=== PATIENT | female | born 1990 | race Caucasian/White ===

== ENCOUNTER 2021-04-29 09:00 | Outpatient (RCR) | payer SELFPAY ==
--- NOTE | 2021-04-29 09:05 | BH.SGPN.GN ---
Behaviors/Verbalizations/Mental Status: [] Eye contact is poor. Motor activity is restless. Appearance is casual. Speech is Appropriate. Mood is anxious. Affect is congruent. Thoughts are linear and logical. No evidence of psychosis. Client Response/Progress/Benefit: [] Pt choose not to participate in group. This was her first group and she was visibly anxious AEB restlessness and feet tapping. She did smile and nodd when other members were talking. Group provided some advice for her first day and week in the program and were very encouraging and welcoming. No progress noted as this was pt's first day in IOP. Will continue in IOP to stabilze mood and improve functioning. Narrative Note: []
--- NOTE | 2021-04-29 10:05 | BH.SGPN.GN ---
Behaviors/Verbalizations/Mental Status: []Client alert and oriented, neatly dressed and groomed. Eye contact avodiant. Motor activity appropriate. Speech within normal limits. Affect flat, mood anxious. Thoughts linear, logical. Client reports history of delusions and hallucinations, but these did not present during session. Client Response/Progress/Benefit: []Client engaged in session AEB taking notes and listening attentively to peers. Client was quiet throughout group but was taking notes and was attentive. Client listened as group identified benefits of setting boundaries such as reduced stress and improved relationships. Listened during psychoeducation on different types of boundaries. Client seemed to benefit from increased awareness of how boundaries impact mental health and the different types of boundaries there are. First day of IOP tx. Will continue IOP tx to prevent decompensation, get medication management, and gain support. Narrative Note: []
--- NOTE | 2021-04-29 11:10 | BH.SGPN.GN ---
Behaviors/Verbalizations/Mental Status: []Client alert and oriented, casually dressed and appropriately groomed. Eye contact fair. Motor activity appropriate. Speech within normal limits. Affect constricted, mood anxious. Thoughts linear and intact. no signs of delusions or hallucinations. Client Response/Progress/Benefit: []Client passive participant AEB client providing limited input throughout discussion, however did appear to listen attentively to discussions. Client engaged in the boundary self-assessment activity. Client chose to not share what she most struggles with in boundary setting. Client was attentive during psychoeducation on the different boundary styles. Client stated she tends to be a people pleaser which results in her having difficulty saying no. Participated in group discussion brainstorming various strategies for improving healthy personal boundaries. Seemed to benefit from increased awareness of personal boundary style and impact this has on mental health. Will continue IOP tx to decrease anxiety, improve ability to relax and prevent decompensation. Narrative Note: []
--- NOTE | 2021-04-30 09:05 | BH.SGPN.GN ---
Behaviors/Verbalizations/Mental Status: [] Eye contact is poor. Motor activity is restless. Appearance is casual. Speech is Appropriate. Mood is euthymic. Affect is full. Thoughts are linear and logical. No evidence of psychosis. Reviewed daily check in sheet and no reports of suicidal ideations or intent. Client Response/Progress/Benefit: [] Pt did not participate in group discussion and choose not to share. She was attentive AEB by head nodding. She does appear to benefit from group support and discussions. While she does not participate she again does appear engaged in the topic. Will continue in IOP to stablize mood and improve functioning. Narrative Note: []
--- NOTE | 2021-04-30 10:10 | BH.SGPN.GN ---
Behaviors/Verbalizations/Mental Status: []Client alert and oriented, casual dress, hygiene tended to. Eye contact fiar. Motor activity appropriate. Speech within normal limits. Affect constricted, mood dysthymic. Thoughts linear, logical, no signs of hallucinations or delusions. Client Response/Progress/Benefit: []Pt mostly passive participant AEB pt providing input during discussion and listened attentively to peers. Pt worked with group to identify benefits of effective problem solving. Listened during psychoeducation about ABCDE problem solving method. Worked with group to identify barriers to effective problem solving which included: anxious thoughts, impatience, denial, not having skills, feeling overwhelmed, and worries about what other people think. Pt seemed to benefit from increased awareness of strategies to help solve a problem. Pt to continue IOP to stabilize moods, increase healthy coping and prevent decompensation. Narrative Note: []
--- NOTE | 2021-04-30 11:10 | BH.SGPN.GN ---
Behaviors/Verbalizations/Mental Status: [] Eye contact is fair to good. Motor activity is appropriate. Appearance is casual. Speech is Appropriate. Mood is anxious and depressed. Affect is constricted. Thoughts are linear and logical. No evidence of psychosis. Client Response/Progress/Benefit: [] Pt receptive of session as evidenced by remaining attentive, taking notes throughout discussion, and working the problem-solving worksheet. Pt stated the problem she wants to work on is isolation. She struggled in identifying skills she can utilize to work on this problem and appeared reluctant to feedback provided by group. Still new to IOP tx and is adjusting to the group environment. Pt seemed to benefit from identifying strategies to problem solve through a problem currently impacting mental health. Recommended continued tx to improve use of healthy coping skills, improve mood stability, and prevent decompensation. Narrative Note: []
--- NOTE | 2021-05-04 09:05 | BH.SGPN.GN ---
Behaviors/Verbalizations/Mental Status: [] Pt eye contact intense at times and avoidant other times, casually dressed, motor activity appropriate, speech normal rate and tone, mood anxious. constricted affect. Thought blocking, struggled at times with completing a sentence. Reviewed client?s symptom tracker, no signs of suicidal ideation, plan, or intent as of today. Client Response/Progress/Benefit: []Pt engaged participant AEB listening attentively to others and sharing thoughts and feelings. Pt reported her best friend's mom is dying so pt stayed with her friend over the weekend to help care for her friends children. Pt initially stated they had fun together but stopped herself and said It couldn't be fun because I was there for a sad thing. Pt reported a mental health positive was helping clean for one hour with her friends kids. Pt stated she has stressors but did not want to share. Pt identified emotion today as anxious stating I'm always anxious. Pt seemed to benefit from expressing thoughts and feelings. Pt to continue IOP to stabilize moods, increase daily functioning and prevent decompensation. Narrative Note: []
--- NOTE | 2021-05-04 10:15 | BH.SGPN.GN ---
Behaviors/Verbalizations/Mental Status: [] Eye contact is poor. Motor activity is appropriate. Appearance is casual. Speech is Appropriate. Mood is anxious. Affect is congruent. Thoughts are linear and logical. No evidence of psychosis. Client Response/Progress/Benefit: [] Pt participated at times during the group discussion and activity. Attentive during psychoeducation. Limited engagement however did at times provide feedback during activity where group had to identify 10 positives and 10 negatives of a picture. Attentive with some engagement while group identified what lead to one's perspective; upbringing, trauma, environment, friends, past events, fear, medical issues, physical pain, and mental health disorders. Some engagement and participation with peers as they identified how one's perspective can negatively impact mental health treatment leading to; risky behaviors, suicidal thoughts, self-harming, isolation, avoiding treatment, shutting down, and can also cause one to stop taking medications. Provided some input into how a positive or realistic perspective can help decrease depression, improve relationship, increase hope, and increase motivation. Increased awareness and discussion on the role that perspective has on mental health was beneficial. Will continue in IOP to prevent decompensation, stabilize mood, and improve functioning. Narrative Note: []
--- NOTE | 2021-05-04 11:15 | BH.SGPN.GN ---
Behaviors/Verbalizations/Mental Status: []Client alert and oriented, neatly dressed and groomed. Eye contact good at times, other times avoidant. Motor activity appropriate. Speech within normal limits. Affect flat, mood anxious. Thoughts linear, logical, no signs of hallucinations or delusions. Client Response/Progress/Benefit: []Pt engaged participant AEB pt providing input throughout session, listening attentively to peers and completing strengths exploration handout. Pt identified personal strengths such forgiveness, love of learning, and enthusiasm. Pt stated these strengths will help pt?s mental health recovery, but right now pt has a hard time identifying strengths. Pt reports she was told she did not have strengths for a long time which made her start to believe the negatives. Group offered support and suggestions to combat this. Pt seemed to benefit from increased awareness of personal strengths and improved understanding how perspective can impact view of self. Pt also attentive while group identified coping skills to increase recognition of strengths. Pt is to continue IOP tx to prevent further decompensation, learn healthy coping skills, and increase daily functioning. Narrative Note: []
--- NOTE | 2021-05-04 14:39 | BH.MDN ---
Multi-Disciplinary Note - Note 60-min Individual Time Started:: 12:15 Date: 05/04/21 Purpose of session/treatment goals addressed:: The purpose of this session was to gather information on client's current stressors, symptoms, and treatment goals. Another goal was to build rapport. Eye Contact:: Other - eyes darting back and forth at times. other times intense or avoidant. Motor Activity:: Appropriate Appearance:: Neat Speech:: Tangential Mood:: Anxious Affect:: Constricted Thoughts:: Circular, No evidence of hallucinations/delusions noted - possible evidence of paranoia and self-report of hearing things. Denies any command hallucinations. Staff Interventions:: Therapist used active listening and open-ended questions to explore client's current stressors, symptoms, history, and treatment goals. Therapist used strengths perspective to build rapport and help client feel comfortable in the treatment setting. Client Response:: Client responded well to session, open to meeting with therapist. Client did appear anxious discussing symptoms with therapist, but overall appeared to feel comfortable. Client shared her goals for IOP are to have healthier boundaries and communication, to have more balance in her life, and to be able to identify her negative thought patterns. 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 Client reports one of her previous nursing jobs was very toxic as client reports one of the nurses was hiding medications from client and treating her poorly. Client stated she would silence my alarms and hide the medications I needed to treat COVID patients. Client reported she was told I was just making this up and that she has been suspicious of working in hospitals since. Client admits to some paranoia and hearing some noises others do not hear, but denies any command hallucinations. Client stated she obsesses over things and is a perfectionist. Client receptive to learning about some of the common cognitive distortions and discussed what to expect when client meets with the psychiatrist. Risks/Concerns:: Client denies any suicidal ideations or homicidal ideations. Client does not present as a danger to herself or others at this time. Will continue to monitor client's mood and paranoia. Progress Toward Goals/Plan:: Client started IOP last week and appears to be responding well to treatment. Client has been taking notes and connects with the group topics. Client endorses a depressed mood, paranoid thoughts, isolative behaviors. Client has been withdrawing from her friends due to her anxiety and paranoia. Client reports connecting things that are not connected have worsened over time. Client currently believes her car, house and phone are all bugged and that she is being watched. Client is not currently on any antipsychotic medications and does not have any providers. Client will continue IOP tx to prevent decompensation, improve daily functioning, and for medication management. Time Stopped:: 13:08
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
--- NOTE | 2021-05-04 14:41 | BH.MTP_ITS ---
Master Treatment Plan - Patient Information Program Physician:: Dr. Jenn Vu Primary Therapist:: Lo YARBROUGH - Psychiatric Diagnoses Psychiatric Diagnoses:: Psychosis, not otherwise specified; Rule out bipolar disorder, most recent episode depressed, severe with psychosis F 31.9 Diagnosis Code(s):: F 31.9 - Estimated LOS Estimated LOS (in weeks):: 6 Problem/Goal #1 - Problem/Goal #1 Stated Goal:: Client will reduce overall frequency, intensity, and duration of paranoia and anxiety to improve daily functioning. Description of Barriers: Client is currently not working and does not have insurance. Client pays child support to her ex- and there is a lot of financial stress at this time. Client has experienced numerous life stressors such as divorce and the COVID pandemic. 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 Client reports lack of trust and isolative behaviors. No current mental health providers. Functional Impact: Client is a 30 year-old female with a history of anxiety, depression, and paranoia. Client was referred to [facility] by a close friend due to client's worsening anxiety and connecting things that aren't connected. Client reports belief that her house, car, and phone are all bugged. Client also re ports hearing sounds others do not hear, but denies hearing any voices. 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 Client reports lack of trust for people, even those closest to her. Client currently withdrawing from family and friends, but still enjoys spending time with her children. Client reports some symptoms of ham, but there is not enough evidence at this time. Endorses a depressed mood with erratic sleep and decreased appetite. Client is not functioning at her baseline and reports it has been hard for her to leave her house due to anxiety. Client reports her symptoms have been worse over the past six months and client has experienced numerous stressors including the COIV[place] pandemic and divorce. Goal Relevant Strengths/Supports: Client wants to improve her mental health for herself and her children. Client has her best friend for primary support. - Objectives Objective #1 Stated Objective: Client will identify 2-3 anxiety and paranoia triggers and 2 healthy coping skills to use when feeling anxious to reduce anxiety and paranoia as shown by decreased DSM-5 cross-cutting score. Interventions: Therapist will help client increase awareness of cognitive distortions, paranoia triggers, and physical warning signs of anxiety. Therapist will encourage client to focus on stressors in her control and teach client calming and mindfulness techniques. Therapist will encourage client to utilize reality checking with her supports when she is feeling paranoid. Discharge Criteria: Client will have accomplished this goal when can report at least 2 triggers for anxiety/paranoia and state using 2 calming strategies to manage symptoms. Additionally, client will have accomplished this goal when her DSM-5 cross-cutting scores show a decrease in anxiety. Target Date: 06/10/21 Review Date: 05/27/21 Status: open Objective #2 Stated Objective: Develop healthier thinking patterns and beliefs about self, others, and the world Interventions: Through individual and group counseling, therapist will provide education and guidance on healthy coping, impact of ruminations, and identifying and challenging unrealistic thoughts. Therapist will also encourage client to reach out to healthy supports to increase trust. Discharge Criteria: Client will be able to identify 3 strategies to manage emotional distress related to triggers to paranoid thoughts. Client will report decreased amount of time spent worrying about what she perceives others are thinking about her. Target Date: 06/10/21 Review Date: 05/27/21 Status: open Problem/Goal #2 - Problem/Goal #2 Stated Goal:: Client will decrease depressive symptoms, isolation, and guilt. Description of Barriers: Client is currently not working and does not have insurance. Client pays child support to her ex- and there is a lot of financial stress at this time. Client has experienced numerous life stressors such as divorce and the COVID pandemic. 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 Client reports lack of trust and isolative behaviors. No current mental health providers. Functional Impact: Client is a 30 year-old female with a history of anxiety, depression, and paranoia. Client was referred to IOP by a close friend due to client's worsening anxiety and connecting things that aren't connected. Client reports belief that her house, car, and phone are all bugged. Client also reports hearing sounds others do not hear, but denies hearing any voices. 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 Client reports lack of trust for people, even those closest to her. Client currently withdrawing from family and friends, but still enjoys spending time with her children. Client reports some symptoms of ahm, but there is not enough evidence at this time. Endorses a depressed mood with erratic sleep and decreased appetite. Client is functioning at her baseline and reports it has been hard for her to leave her house due to anxiety. Client reports her symptoms have been worse over the past six months and client has experienced numerous stressors including the COIV[place] pandemic and divorce. Goal Relevant Strengths/Supports: Client wants to improve her mental health for herself and her children. Client has her best friend for primary support. - Objectives Objective #1 Stated Objective: Client will learn and utilize 2-3 healthy coping strategies to better manage depressive symptoms as shown by reduced DSM-5 scores. Interventions: Through group and individual sessions, therapist will help client identify triggers and warning signs of depression and emotional dysregulation including emotional, physical, and behavioral changes. Therapist will teach client various coping skills to manage her symptoms and give client tangible resources to use to regulate emotions. Therapist will use cognitive rest ructuring techniques and help client gain awareness of negative thoughts that reinforce depressive cycles. Therapist will help client incorporate behavioral activation and assist client in setting SMART goals. Discharge Criteria: Client will have met this goal when she can report learning and using at least 2 coping skills to manage depressive and bipolar symptoms and show a reduction in DSM-5 symptoms. Target Date: 06/10/21 Review Date: 05/27/21 Status: open
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
[2021-05-05 12:23] VITALS: BP 123/76; PULSE 53
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
--- NOTE | 2021-05-05 13:16 | BH.DR.ITP ---
Initial Treatment Plan Patient Information Visit Information: ADMISSION DATE: EXPECTED LOS: 4-6 weeks Problems/Symptoms Problem #1:: Depression and erratic moods Symptom:: Sadness, guilt, biological disruption of sleep, decreased concentration, guilt, passive thoughts of , delusions of paranoia Problem #2:: Anxiety Symptom:: Rumination, worry, fear
--- NOTE | 2021-05-06 09:05 | BH.SGPN.GN ---
Behaviors/Verbalizations/Mental Status: [] Eye contact is poor.. Motor activity is restless. Appearance is casual. Speech is Appropriate. Mood is anxious. Affect is congruent. Thoughts are linear and logical. No evidence of psychosis noted in group. Reviewed daily check in sheet and no reports of suicidal ideations or intent Client Response/Progress/Benefit: [] Pt participated when prompted. Attentive. She did provide feedback to peer on one occasion. Emotion for today is not sure. States that she was able to read a book yesterday. Briefly shared how this was a positive. Also shared that the book itself was very uplifting. She states that she has thought about starting a journal however due to her paranoia she is fearful that someone will find it and read it. This was the first that she discussed paranoid and distrustful thoughts in group setting and could indicate feeling more comfortable in IOP. Progress noted. Benefited from group support, encouragement, and feedback. Will continue in IOP to stabilize mood, provide support, and improve functioing. Narrative Note: []
--- NOTE | 2021-05-06 10:10 | BH.SGPN.GN ---
Behaviors/Verbalizations/Mental Status: [] Client alert and oriented, casually dressed and groomed. Eye contact good. Motor activity appropriate. Speech within normal limits. Affect congruent, mood anxious. Thoughts linear, logical, no signs of hallucinations or delusions. Client Response/Progress/Benefit: [] Pt was an active participant in group discussion, proving input and taking notes, as well as completed group worksheet. Provided appropriate feedback and shared how learning how to manage anger can positively improve relationships with oneself and others. Group worked together to define anger and discussed the ways anger can impact one internally and externally. Pt reported that anger can be triggered by external situations, other people, and disappointment in oneself. Pt completed the iceberg exercise and identified emotions that tend to ?live under the surface? of anger. Pt also gained awareness of her typical responses to anger which included: shutting down, passive-aggressive or being sarcastic, and lashing out. Pt acknowledges that anxiety, feeling out of control/unknowns, and unexpected change has brought about personal anger in the past. Benefited from group by increasing understanding of the impact of anger on mental health. Recommended continued tx to improve emotion regulation skills, prevent decompensation, and continue to work on improving anxiety management. Narrative Note: []
--- NOTE | 2021-05-06 11:10 | BH.SGPN.GN ---
Behaviors/Verbalizations/Mental Status: []Client alert and oriented, neatly dressed and groomed. Eye contact fair. Motor activity appropriate. Speech within normal limits. Affect constricted, mood anxious. Thoughts linear, logical, no signs of hallucinations or delusions. Client Response/Progress/Benefit: []Pt was engaged throughout AEB participating in discussion and taking notes. Contributed as group brainstormed healthy coping skills for better managing anger which included: deep breathing, counting, exercise, self-reflection questions, and opposite action. Pt also gained awareness of physical warning signs pt has when feeling anger such as restlessness, teary eyes, and clenched fists. Pt appeared to benefit from identifying different techniques to manage anger as well as gaining awareness of warning signs. Pt selected ?counting to 10 like a whale? to better manage anger. Will continue IOP tx to monitor paranoia and medications, increase knowledge of healthy coping skills, and gain support. Narrative Note: []
--- NOTE | 2021-05-10 09:01 | BH.SGPN.GN ---
Behaviors/Verbalizations/Mental Status: []Client alert and oriented, casual dress, hygiene tended to. Eye contact fair. Motor activity appropriate. Speech within normal limits. Affect constricted, mood anxious. Thoughts linear, logical, no signs of hallucinations or delusions. Client Response/Progress/Benefit: Pt responded well to session AEB pt openly sharing thoughts and listening attentively to others. Pt identified mental health positive as being able to read a book over the weekend. Pt reported additional mental health positives as starting to write journals for her kids. Pt stated she has been asking questions to her kids to learn more about them. Pt stated she didn't want to talk about any stressors. Pt seemed to benefit from listening to peers and sharing thoughts. Pt to continue IOP to stabilize moods, increase healthy coping and prevent decompensation. Narrative Note: []
--- NOTE | 2021-05-10 10:15 | BH.SGPN.GN ---
Behaviors/Verbalizations/Mental Status: []Eye contact is good. Motor activity is appropriate. Appearance is casual. Speech is Appropriate. Mood is irritable. Affect is flat. Thoughts are linear and logical. No evidence of psychosis. Client Response/Progress/Benefit: []Pt was an active participant in group discussion and activity. Attentive during psychoeducation on factors that build resiliency. Worked with peers to define resilience and was often nodding and taking notes. Along with peers also identified what could impact resilience which included: family, internal coping skills, beliefs, hope, and personality type. Pt reports thinking of her children makes pt resilient. Pt benefited by increasing awareness on the role of resilience in mental health and factors that can help build resiliency. Will continue IOP tx to prevent decompensation, monitor medication/psychosis, and improve daily functioning. Narrative Note: []
--- NOTE | 2021-05-10 11:20 | BH.SGPN.GN ---
Behaviors/Verbalizations/Mental Status: []Client alert and oriented, casually dressed and groomed. Eye contact good. Motor activity appropriate. Speech within normal limits. Affect congruent, mood anxious. Thoughts linear, logical, no signs of hallucinations or delusions. Client Response/Progress/Benefit: []Client responded well to session, engaged and providing input throughout. Client participated in the discussion of how each resiliency component can help increase personal resiliency. Reports relating to the personal examples shared by fellow participants. Client worked with group to identify ways to practice each of the resiliency traits reviewed. Client shared she would like to focus on improving resilience trait of ?self-awareness?. Client would like to continue working on this resiliency trait by regularly checking-in with herself and asking ?How did this actually impact you??. Appeared to benefit from reflecting on importance of each resilience trait and identifying strategies to strengthen resilience. Will continue IOP tx to continue to improve mood stability, further reduce anxiety, and improve daily functioning. Narrative Note: []
--- NOTE | 2021-05-11 09:08 | BH.SGPN.GN ---
Behaviors/Verbalizations/Mental Status: []Eye contact is good. Motor activity is appropriate. Appearance is casual. Speech is Appropriate. Mood is dysthymic, anxious. Affect is congruent. Thoughts are linear and logical. No evidence of psychosis. Reviewed daily check in sheet and no reports of suicidal ideations or intent. Client Response/Progress/Benefit: []Pt was an attentive participant AEB actively listening and providing supportive feedback, as well as willingness to process with group. Client reports emotion for the day as ?less anxious but tired? as she is still adjusting to the IOP schedule. Shared she has been working to improve her overall self-awareness which has been somewhat of a stressor as pt continues to struggle with recognizing when she is struggling and identifying warning signs and triggers. Able to provide insight into importance of improved self-awareness to help prevent sx escalation long-term. Pt did well to recognize current positives which included spending time with a friend and her father, as well as beginning to work on thought challenging. Continues to struggle with thought blocking and paranoia that reinforce sx. Benefited from group support, encouragement, and feedback. Will continue in IOP to improve coping repertoire, prevent decompentation, and improve overall mood stability. Narrative Note: []
--- NOTE | 2021-05-11 10:15 | BH.SGPN.GN ---
Behaviors/Verbalizations/Mental Status: []Client alert and oriented, casually dressed and groomed. Eye contact poor. Motor activity appropriate. Speech within normal limits. Affect constricted, mood anxious. Thoughts linear, logical, no signs of hallucinations or delusions. Client Response/Progress/Benefit: []Client passive participant AEB pt providing limited input during session AEB client contributing thoughts throughout discussion and completing worksheet. Connected with discussion on crisis and how coping with external crises by using unhealthy coping skills could result in a personal crisis. Group reflected on the importance of having awareness of personal warning signs in order to prevent reaching crisis point. Group identified potential warning signs for crisis and client completed the personal warning signs worksheet. Client completed worksheet in which she identified personal crisis warning signs, however elected to not share out with group. Client benefited by increasing awareness of what leads to crisis and personal warning signs. Pt will continue IOP to stabilize moods, increase healthy coping and prevent decompensation. Narrative Note: []
--- NOTE | 2021-05-11 11:15 | BH.SGPN.GN ---
Behaviors/Verbalizations/Mental Status: []Client alert and oriented, casually dressed and groomed. Eye contact fair. Motor activity appropriate. Speech within normal limits. Affect constricted. Mood anxious. Thoughts linear, logical, no signs of hallucinations or delusions. Client Response/Progress/Benefit: []Client responded well to session as evidenced by client listening attentively to others and providing strategies during discussion. Client identified warning signs for crisis and gained further awareness of earliest warning signs. Client created a crisis action plan to help client better manage warning signs for crisis. Client?s action plan for uncontrollable worries, negative thinking, and racing thoughts included coping skills such as: calling her supports, reframing distortions, sharing thoughts with counselor, and using calming skills. Client appeared to benefit from creating a crisis action plan and increasing self-awareness. Client to continue IOP tx to prevent decompensation, monitor paranoia and medications, and improve daily functioning. Narrative Note: []
--- NOTE | 2021-05-12 09:00 | BH.SGPN.GN ---
Behaviors/Verbalizations/Mental Status: []Eye contact is avoidant. Motor activity is restless. Appearance is neat. Speech is Appropriate. Mood is depressed and anxious. Affect is flat. Thoughts are linear and logical. No evidence of psychosis in session, but history of paranoid thoughts. Reviewed daily check in sheet and pt denies any suicidal ideations or thoughts of today. Client Response/Progress/Benefit: []Client responded well to session, attentive, but appearing anxious. Client reports feeling unsure and scared this morning due to feeling overwhelmed by current stressors. While sharing, client was drawing on her pants with a pen. Client did not want to share many details, but did share that her children are her biggest positive. Client is still getting comfortable in the IOP setting and has been consistent with attendance which is progress. Will continue IOP tx to reduce paranoia, improve daily functioning, and monitor medication changes. Narrative Note: []
--- NOTE | 2021-05-12 12:06 | PCM.BH.PN_ITS ---
Progress Note Progress Note: History of Present Illness/Interim History: [] The patient is a 30-year-old female who is seen in follow-up at the [facility] behavioral health IOP program. I last saw the patient 1 week ago and at that time she was started on Abilify 5 mg p.o. daily and was instructed to stop her Prozac. Discussion was had with the patient that she may well have a bipolar disorder which may be in part responsible for her psychosis. Patient understands and it was discussed again that she needs to see a neurologist for her recent onset of migraine headaches and to have a CT scan to rule out CLERICAL MANAGER pathology as causing the headaches and possibly the psychosis. Per discussion with staff the patient is doing well in the groups. She is still having some trouble with her sleep where she wakes up every hour or 2 but does get back to sleep for most of the time. She felt jittery the first 2 days on the Abilify but this resolved. Her symptoms are otherwise not much changed and she continues to believe that her house and phone are bugged and that she is being watched. She is able to read a few pages in books at a time but is still has trouble focusing. In discussion with her counselor also the patient's delusions are unchanged. She denies any auditory hallucinations or other types of delusions besides paranoia. She is enjoying being with her children and taking care of them. She denies passive thoughts of , suicidal ideation, homicidal ideation. Current Psychiatric Medications: [] Abilify 5 mg p.o. daily (x1 week) Laboratory: Complete metabolic panel and TSH and urinalysis were all within normal limits on her urine tox screen was negative. Mental Status Examination: [] The patient appears normal for stated age and is seen wearing a mask due to the pandemic. She has no psychomotor agitation or retardation. She is cooperative during the interview and her response latency is shorter than it was at initial visit. Eye contact is improved and the patient does look at the doctor at times but occasionally looks away at other times. Mood is depressed and affect is constricted. Thought process is goal- directed and organized. Thought content: There is evidence of delusions of paranoia still which are unchanged. There is no evidence of hallucinations or other types of delusions. Reality testing is otherwise intact. There is no evidence of passive thoughts of , suicidal ideation, homicidal ideation, plan for suicide or thoughts of self-harm. Judgment is limited but intact for the most part. Insight is fair. Impulsivity is moderate. Diagnoses: [] 1. Rule out bipolar disorder, most recent episode depressed, severe with psychosis versus psychosis, NOS 2. Primary support, financial and work issues 3. Headaches with onset in the past year 4. Primary support, financial and work issues Plan: [] The patient will continue the IOP program at [facility] as she is functioning well in the program and as the structure, support, education and group therapy will hopefully prevent worsening of the patient's symptoms which might require hospitalization. She felt safe during the interview and if it anytime she does not feel safe she will let us know or go to the emergency room. The risks, options, possible complications were again discussed with the patient of the medications and she understands and accepts these. Patient agrees to increase her Abilify to 7.5 mg by taking 1-1/2 of a 5 mg tablet. She agrees to attempt to get a new primary care doctor and possibly a neurologist who she will see for headaches and where she will get us a CT scan ordered also. I will see the patient in 1 week in follow-up.
--- NOTE | 2021-05-12 14:53 | BH.MDN_ITS ---
Multi-Disciplinary Note - Note 45-min Individual Time Started:: 10:25 Date: 05/12/21 Purpose of session/treatment goals addressed:: To address current symptoms, worries, and stressors. Another goal was to start using reality testing techniques and help client increase insight to thought patterns and symptoms. Eye Contact:: Other - sometimes good, sometimes avoidant Motor Activity:: Appropriate Appearance:: Casual Speech:: Tangential Mood:: Anxious Affect:: Constricted Thoughts:: Flight of ideas, No evidence of hallucinations/delusions noted - some evidence of paranoid delusions Staff Interventions:: Therapist used active listening and provided emotional support. Therapist helped client gain insight to distorted thought patterns and used gentle thought challenging. Therapist helped client process current stressors and identify realistic actions client can take at this time. Client Response:: Client entered session alert, appeared anxious and was presenting with loose associations. Client stated she was at the gym and thought a girl took a picture of client in the locker room. Client unable to see other possible reasons for this, but therapist offered alternatives. Client did end up saying I guess I could see that to one of the alternatives. Client continues to feel overwhelmed by multiple life stressors including issues with her ex- and child support as well as mental health and finances. Client spent most of the session ruminating about the past with work and her divorce. Client lacks insight to her paranoid thought patterns and shared that she still believes her phone and home are bugged. Discussed reality testing and how this could help client's mental health. Client does well during individual sessions when therapist gently challenges client's perspective. Client reports she has a hard time trusting people and really only trusts her best friend. Client had many stressors today, but was unable to develop any concrete action steps to help manage these. Client continues to be receptive to medication and recently was increased on Abilify. Risks/Concerns:: Client denies any suicidal ideations, plan, or intent as of 05/12/21. Client has not yet received a CT scan for her migraines and was encouraged again by [facility] psychiatrist to schedule this. Progress Toward Goals/Plan:: Client is making progress with increasing comfort in the group setting and feeling more comfortable to share with individual therapist. Client presents as less guarded during sessions, but she is still having thought-blocking. Client continues to endorse symptoms of paranoia, racing thoughts, difficulty concentrating, and anxiety. Client will continue IOP tx to prevent decompensation, monitor medication changes, and improve overall functioning. Time Stopped:: 11:15
--- NOTE | 2021-05-20 08:53 | BH.MDN ---
Multi-Disciplinary Note - Note 60-min Individual Time Started:: 09:05 Date: 05/20/21 Purpose of session/treatment goals addressed:: To help increase insight to triggers, distorted thought patterns, and progress. To discuss outpatient counseling options. Eye Contact:: Other - sometimes good, sometimes scanning Motor Activity:: Restless Appearance:: Casual Speech:: Tangential Mood:: Anxious, Irritable, Dysthymic Affect:: Congruent Thoughts:: Racing, Other - Tangential and thought blocking at times. Staff Interventions:: Therapist assessed progress and client's response to medication change. Therapist provided emotional support and active listening. Therapist gently challened distorted thought patterns and encouraged client reconnect with her former outpatient therapist. Client Response:: Client responded well to session, open to meeting with therapist. Client reports belief she is seeing benefits from her medication increase. However, client continues to report that her house, car, and phone are bugged. Client also continues to ruminate on her divorce and is worried about court. Client did better this session with being redirected and was receptive to discussion on outpatient therapy. Client used to go to [facility], but stopped going because she felt like her therapist was telling people confidential information about client. Client has gained insight that it wasn't just him I didn't trust, I didn't trust anyone. Client still has low insight to her paranoid thoughts, but is tolerating the Abilify well which will hopefully help with this symptom. Client reports she has been exercising more consistently and she is thinking about getting a job although she is not sure she knows what she wants to do. Client receptive to practicing positive self-talk and setting goals for each day for now, rather than focusing on long-term goals. Client will continue IOP tx and plans to follow up with [facility] for outpatient counseling and psychiatry. Risks/Concerns:: Client denies any suicidal or homicidal ideations plan or intent as of 05/20/21. Progress Toward Goals/Plan:: Client self-reports progress in less seeing/hearing things at home, less mood fluctuating, and less racing thoughts since increasing her medication. There is still evidence of paranoid thoughts as client shared in session today that her phone is still bugged and there are cameras at her house. Client has been exercising which is positive. Sleep is slowly improving. Will continue IOP tx to reduce paranoia, improve functioning, and learn healthy coping skills. Time Stopped:: 10:00
--- NOTE | 2021-05-20 10:10 | BH.SGPN.GN ---
Behaviors/Verbalizations/Mental Status: [] Eye contact is good. Motor activity is appropriate. Appearance is casual. Speech is Appropriate. Mood is anxious. Affect is congruent. Thoughts are linear and logical. No evidence of psychosis Client Response/Progress/Benefit: [] Pt participated at times during the group discussion. Active participant in group activity. Attentive during psychoeducation on the 5 stages of change. Pt provided insight while group worked to identify barriers to change which included; being complacent, fear of the unknown, being uncomfortable, fearful that any change will be overwhelming, accustomed to current life, and knowing what to expect (even if its negative) is comfortable. During activity group processed emotions commonly associated with change along with her peers. Emotions processed were exhausted, cautious, hopeful, frustrated, overwhelmed, confident, frightened, relief, and excitement. Benefited from increase awareness of the emotions associated with change and how these emotions can encourage or disrupt change. Will continue in IOP to stablize mood, improve functioning, and for medication management. Narrative Note: []
--- NOTE | 2021-05-25 09:00 | BH.SGPN.GN ---
Behaviors/Verbalizations/Mental Status: [] Eye contact is good. Motor activity is appropriate. Appearance is casual. Speech is Appropriate. Mood is euthymic. Affect is full. Thoughts are linear and logical. No evidence of psychosis. Reviewed daily check in sheet and no reports of suicidal ideations or intent. Client Response/Progress/Benefit: [] Pt participated at times during the group discussion. Attentive. Provided appropriate feedback. Daily symptom tracker notes 3/5 for anxiety, depression, and irritability. Emotion for today is somewhat hopeful Mental health wins reported to be applying for job and accomplishing tasks around the house. States life is stressful. Feels pressure to start work due to finances and her dream to build a house. Progress noted per pt report. Benefited from group suppor and encouragement. Will continue in IOP to prevent decompensation, medication management, and to improve functioning. Narrative Note: []
--- NOTE | 2021-05-25 10:08 | BH.SGPN.GN ---
Behaviors/Verbalizations/Mental Status: []Client alert and oriented, casually dressed and groomed. Eye contact good. Motor activity appropriate. Speech within normal limits. Affect constricted, mood anxious and hopeful. Thoughts linear, logical, no signs of hallucinations or delusions. Client Response/Progress/Benefit: []Client responded well to session, attentive and contributing to discussion. Group discussed potential barriers to communication including: yelling, shutting down, passive-aggressive behaviors, and mind-reading. Helped group identified positives of having effective communication skills. Attentive during psychoeducation on the four communication styles. Client reported she most often uses passive, passive-aggressive, and aggressive communication. Able to recognize negative outcomes of communication style such as ?no solutions.? Seemed to benefit from increased awareness of the different communication styles and identify personal communication style. Client to continue in IOP tx to monitor mood and medication, reduce distortions, and improve daily functioning. Narrative Note: []
--- NOTE | 2021-05-25 11:08 | BH.SGPN.GN ---
Behaviors/Verbalizations/Mental Status: []Client alert and oriented, casually dressed and appropriately groomed. Eye contact fair. Motor activity appropriate. Speech WNL. Affect constricted, mood anxious. Thoughts linear, logical, no signs of hallucinations or delusions. Client Response/Progress/Benefit: []Client responded well to session AEB client listening attentively to others and providing input during group discussion on the pay offs and costs of the different communication styles. Attentive during psychoeducation on interpersonal DBT skill ARAVIND and client selected a communication skill to practice. Client selected the skill of describing the situation more clearly so everyone is on the same page. Client seemed to benefit from increasing awareness of healthy strategies to improve communication. Will continue IOP tx to continue challenging distorted thoughts, stablize moods and prevent decompensation.
--- NOTE | 2021-05-26 09:00 | BH.SGPN.GN ---
Behaviors/Verbalizations/Mental Status: []Client alert and oriented, casually dressed and groomed. Eye contact fair. Motor activity appropriate. Speech within normal limits. Affect constricted, mood anxious and dysthymic. Thoughts linear, logical, no signs of hallucinations or delusions. Reviewed client?s symptom tracker, no risk for suicidal ideation, plan, or intent as of 05/26/21 Client Response/Progress/Benefit: []Client responded well to session, attentive and providing support to peers. Client reports feeling lost this morning sharing I have a lot going on and I don't know what to do next. Client shared she has applied for a few jobs which is progress, but client is unsure what will happen. Client's positives today included spending time with her children, reading more, and plans to go to the [place] soon. Appeared to benefit from group feedback and gentle thought challenging. Progress noted in client's improved mood and increased insight to distorted thought patterns. However, client continues to struggle with trusting others and there is still some evidence of paranoid thinking. Will continue IOP tx to promote mood stability, monitor medication, and learn healthy coping skills. Narrative Note: []
--- NOTE | 2021-05-26 12:34 | PCM.BH.PN ---
Progress Note Progress Note: History of Present Illness/Interim History: [] The patient is a 30-year-old female who is seen in follow-up at the [facility] behavioral health IOP program. I last saw the patient 2 weeks ago and at that time her Abilify was increased to 7.5 mg in the hopes of decreasing her paranoid delusions. She is feeling okay on this dose and denies any side effects. She is functioning a little better at home. She feels a little more tired than she was before and her sleep is still not great she says but it is much better than before she started the Abilify. She still states that she feels that her phone is bugged. She says that she is less paranoid and paranoid overall because now she is not sure that some of the things she wonders about are actually there and she feels there could be alternative explanations like maybe her kids unplugged her phone when she feels paranoid about it. Patient denies any other delusions or hallucinations other than described above. She is enjoying being with her children and is able to take care of them well. She denies thoughts of , suicidal ideation, homicidal ideation. Current Psychiatric Medications: [] Abilify 7.5 mg p.o. daily (x2 weeks) Mental Status Examination: [] The patient is a 30-year-old female who is seen wearing a mask due to the pandemic and a pillow appears normal for stated age. She has no psychomotor agitation or retardation. She is cooperative during the interview and her response latency is normal. It is not delayed. Eye contact is good and speech is normal rate and rhythm and fluent with no pressure. Mood is mildly depressed. Affect is constricted. Thought process is goal-directed and organized. Thought content: There is evidence of delusions of paranoia which are still present but some of them are less rigidly held. There is no evidence of other hallucinations or other types of delusions. Reality testing is otherwise intact. There is no evidence of thoughts of , suicidal ideation, homicidal ideation or thoughts of self-harm. Judgment is intact. Insight is fair. Impulsivity is moderate. Diagnoses: [] 1. Bipolar disorder, most recent episode depressed, severe with psychosis 2. Rule out psychosis NOS 3. Headaches with onset in the past year 4. Primary support, financial and work issues Plan: [] The patient will continue the IOP program as the structure, support, education, and group therapy will hopefully prevent worsening of the patient's symptoms which might require hospitalization. She felt safe during the interview and if it anytime she does not feel safe she will let us know or go to the emergency room. The risks, options, possible complications and side effects of the medications were again discussed with the patient and she understands and accepts these. She agrees that she is allowed to take Benadryl 25 mg, 1-2 at bedtime to help with her sleep. She agrees to increase her Abilify dose to 10 mg p.o. nightly. Prescription was sent in for this with #30 and 0 refills. She agrees to get a new primary care doctor and a referral to her neurologist for her new onset headaches and her possible first time psychosis. I will see the patient in 1 week to 2 weeks for follow-up.
--- NOTE | 2021-05-26 12:45 | BH.MDN_ITS ---
Multi-Disciplinary Note - Note 30-min Individual Time Started:: 11:20 Date: 05/26/21 Purpose of session/treatment goals addressed:: To address and process current stressors and complete DSM-5. Another goal was to review distortions and self- care. Eye Contact:: Fair Motor Activity:: Appropriate Appearance:: Casual Speech:: Appropriate Mood:: Anxious, Dysthymic Affect:: Congruent Thoughts:: Other - some thought blocking, but improved from previous sessions. Staff Interventions:: Therapist used active listening and provided emotional support. Therapist used thought challenging when needed and reviewed distortions. Therapist helped client problem-solve a current stressor and discussed the importance of self-care. Therapist gave client resources on the gut-brain connection as client had asked about this topic. Client Response:: Client responded well to session, open to meeting with therapist. Client reports the increase in medication has been positive and today client's medications were adjusted again. Client's interaction and communication during session has much improved compared to her first session. Client is making better eye contact and ruminating less about the past. Client discussed she is still stressed about finding work, but she has applied for some jobs. Client also plans to return to her old therapist and client has gained insight that it wasn't just him I didn't trust, I didn't trust anyone then. Client able to see how her thoughts were distorted and she is responding well to learning about the cognitive distortions. Client gained awareness of some of her distorted thought patterns that keep her stuck such as disqualifying the positives and all or nothing thinking. Therapist taught client about dialectical thinking and client reports liking this technique. Client also wants to work on having a better self-care balance and being more independent. Client shared she spends a lot of time with her friend and she would like to get back to doing some things on my own. Risks/Concerns:: Client denies any suicidal ideations, plan, or intent as of 05/26/21. Progress Toward Goals/Plan:: Client is progressing well in IOP tx AEB her reduced DSM-5 scores for depression and paranoia. Client?s depression has decreased by 50% since admission and paranoia has decreased by 83%. Client still endorses some paranoid thinking patterns, but they are less rigidly held. Client is also ruminating on the past less during individual sessions. Client continues to endorse anxiety about employment and the future as well as some sleep issues. Client will continue IOP tx to further decrease symptoms and improve daily functioning. Time Stopped:: 11:50
--- NOTE | 2021-05-26 12:53 | BH.TPR ---
Treatment Plan Review Date of Admission:: 04/29/21 Date of Treatment Plan Review:: 05/26/21 Admitting Diagnoses:: Psychosis, not otherwise specified; Rule out bipolar disorder, most recent episode depressed, severe with psychosis F 31.9 Current Diagnoses:: Bipolar disorder, most recent episode depressed, severe with psychosis F 31.9; rule out psychosis NOS Patient's Response to Treatment:: Client is responding well to IOP tx AEB her overall symptom reduction. Client?s DSM-5 scores have decreased by 19% since admission. Client?s symptoms for depression decreased by 50% and symptoms of psychosis decreased by 83%. Client is an active participant in group sessions, takes notes, and connects with peers. Client has been reading and exercising more to help cope with her symptoms. Status of Current Problems and Symptoms: Client's symptoms are ongoing, but there is some improvement since admission. There is evidence of delusions of paranoia which are still present but some of them are less rigidly held. Client has been responding well to her Abilify and reports it has been helping reduce racing thoughts and has helped with sleep, but client is still having sleep issues. Problem #1 Problem Name:: Paranoia and anxiety Status of Goals:: Objective 1- in progress. Client has been responded well to Abilify and this appears to be helping to reduce client?s paranoid thoughts. Client?s DSM-5 scores for psychosis/delusions has decreased by 83% since admission. Client?s DSM-5 scores for anxiety remain the same since admission. Client is working on using healthy coping skills to manage her symptoms such as exercising, reading, and catching distortions. Objective 2- in progress. Client had not been ready to work on challenging her thought patterns prior to getting on a higher dose of Abilify. Now that client has more insight and less rigid beliefs she will work on challenging distortions. Client still has many distorted thoughts about mental health and the stigma associated with mental health. Team Recommendations:: The treatment team encourages client to continue working on identifying distorted thought patterns and using reframing techniques. Encouraged to gain more awareness of her bipolar symptoms and triggers. Problem #2 Problem Name:: Depression, isolation, and guilt Status of Goals:: Objective 1- in progress. Client?s DSM-5 scores for depression have decreased by 50% since admission. Client is reporting being more physically active and her functioning at home has improved a little per her report. Client continues to struggle with negative thinking, sleep issues, and occasional hopelessness. Client was ruminating less on the past today during session which is progress. Team Recommendations:: Treatment team recommends client continue to work on increasing her support system, excersing, and getting connected with mental health services.
--- NOTE | 2021-05-27 08:55 | BH.SGPN.GN ---
Behaviors/Verbalizations/Mental Status: []Eye contact is good. Motor activity is appropriate. Appearance is casual. Speech is Appropriate. Mood is depressed and anxious. Affect is constricted. Thoughts are linear and logical. No evidence of psychosis. Reviewed daily check in sheet and client denies suicidal ideations. denies plan or intent. Client Response/Progress/Benefit: []Pt was an attentive participant AEB actively listening, providing supportive feedback, as well as willingness to process with group. Client reports emotion for the day as ?anxious/unsure? as she has a job interview robin. Discussed feeling bittersweet about this as it is not exactly what she wants occupationally but is still a job which client views as a positive. Struggled on several occasions with disqualifying the positives when discussing he current stressors and progress in managing these. With encouragement, client was able to identify that it took courage for her to continue to make progress in addressing important legal stressors related to her divorce. Additionally, did well to see her willingness to attend IOP tx and trust her fellow participants as progress for her personally. Benefited from group support, encouragement, and feedback. Will continue in IOP to maintain gains, further promote healthy coping behaviors, stabilize mood and reduce paranoia, as well as prevent decompensation. Narrative Note: []
--- NOTE | 2021-05-27 10:00 | BH.SGPN.GN ---
Behaviors/Verbalizations/Mental Status: [] Eye contact is good. Motor activity is appropriate. Appearance is casual. Speech is Appropriate. Mood is euthymic. Affect is full. Thoughts are linear and logical. No evidence of psychosis Client Response/Progress/Benefit: [] Pt was an active participant in group discussion and activity. Attentive during psychoeducation. Pt nimco both her current an desired reality and shared with the group. Her current reality depicted overarching mental health hurdles which are overwhelming and not easy to manage. Her desired reality would be to live her life with less mental health obstacles . Benefited from increased awareness of current mental state and goals. Will continue in IOP to prevent decompensation, improve functioning, and medication management. Narrative Note: []
--- NOTE | 2021-05-27 11:10 | BH.SGPN.GN ---
Behaviors/Verbalizations/Mental Status: []Client alert and oriented, casual dress, hygiene tended to. Eye contact fair. Motor activity appropriate. Speech within normal limits. Affect constricted, mood anxious. Thoughts linear, logical, no signs of hallucinations or delusions. Client Response/Progress/Benefit: []Client engaged during activity and provided ideas on how to cope with internal barriers that keep clients stuck from moving towards goals. Client able to identify barriers to desired reality. Identified barriers to current reality to include: discomfort, fear of failure, negative self-talk, and poor boundaries. Client stated she wants to practice skill of opposite action to help overcome her barriers. Benefited from group by identifying obstacles and solutions to desired reality. Will continue IOP tx to prevent decompensation, stabilize moods and increase healthy coping skills. Narrative Note: []
== END 2021-05-29 23:59 ==
LOC: BHIOP 09:00
PROVIDERS: Referring Provider Psychiatry & Neurology Psychiatry; Visit Provider Psychiatry & Neurology Psychiatry
DX: F28 Other psychotic disorder not due to a substance or known physiological condition (principal); R51.9 Headache, unspecified; Z79.899 Other long term (current) drug therapy; Z81.8 Family history of other mental and behavioral disorders
CPT/HCPCS: S9480; 90832; 90834; 90837; 90853

== ENCOUNTER → 2021-05-06 12:09 | Outpatient (CLI) | payer SELFPAY ==
[2015-03-30 20:50] VITALS: BMI 31.4
[2021-05-06 12:56] LABS: Absolute Lymphocyte Count 1.52 X10^3/uL (0.83-4.51); Absolute Neutrophil Count 3.5 X10^3/uL (2.0-7.7); Basophil# 0.03 X10^3/uL; Basophil% 0.5 % (0-1); Eosinophil# 0.09 X10^3/uL; Eosinophils% 1.6 % (0-5); Hematocrit 42.5 % (37-47); Hemoglobin 14.3 g/dL (12.0-15.0); Lymphocyte # 1.52 X10^3/ul (0.83-4.51); Lymphocyte % 26.9 % (19-41); Mean Corp Hgb Conc 33.6 g/dL (32-36); Mean Corpuscular Volume 89.1 fL (81-99); Mean Platelet Vol. 10.5 fl (6.2-12.0); Monocyte% 8.8 % (0-10); NRBC Flagged by Analyzer 0 % (0-5); Neutrophil # 3.51 X10^3/uL (2.7-7.7); Platelet Count 252 K/mm3 (150-450); RBC Distribution Width SD 42.5 fl (35.1-43.9); Red Blood Count 4.77 M/mm3 (4.2-5.4); White Blood Count 5.7 K/mm3 (4.4-11.0)
[2021-05-06 13:38] LABS: ALB/GLOB Ratio 1.1 RATIO (0.9-2.4); AST(SGOT) 12 U/L (15-37); Alanine Aminotransfer ALT/SGPT 32 U/L (13-56); Alkaline Phosphatase 43 U/L (45-117); Anion Gap 7 (5-15); BUN 14 mg/dL (7-18); BUN/Creat Ratio 19.4 RATIO (10-20); Calcium,Total 9.2 mg/dL (8.5-10.1); Chloride 104 mmol/L (98-107); Creatinine, Serum 0.72 mg/dL (0.55-1.02); EST Glomerular Filtration Rate 99 mL/min (>60); Est Glom Filt Rate - Afr Amer 120 mL/min (>60); Globulin 3.6 g/dL (2.2-4.2); Glucose 94 mg/dL (74-106); Potassium 4.1 mmol/L (3.5-5.1); Protein, Total 7.6 g/dL (6.4-8.2); Sodium Level 138 mmol/L (136-145); Thyroid Stim Hormone (TSH) 1.12 uIU/mL (0.358-3.74)
[2021-05-06 13:43] LABS: Vitamin D,25 Hydroxy 31.2 ng/mL
[2021-05-06 13:53] LABS: Amphetamine Urine VISTA NEGATIVE (<1000 ng/mL); Barbiturate Urine VISTA NEGATIVE (< 200 ng/mL); Benzodiazepine Urine VISTA NEGATIVE (< 200 ng/mL); Cocaine Urine VISTA NEGATIVE (< 300 ng/mL); Ecstacy Urine VISTA NEGATIVE (< 500 ng/mL); Methadone Urine VISTA NEGATIVE (< 300 ng/mL); PCP Urine VISTA NEGATIVE (< 25 ng/mL); THC Urine VISTA NEGATIVE (< 50 ng/mL); Vista UDS pH Range 6
[2021-05-06 14:01] LABS: Color, Urine Yellow (Yellow); Glucose, Dipstick Normal (Normal); Ketone-Dipstick Negative (Negative); Leukocyte Esterase-Dipstick 100 /ul (Negative); Nitrite-Dipstick Negative (Negative); Occult Blood-Urine Negative /ul (Negative); Protein-Dipstick Negative (Negative); Urine Bilirubin Dipstick Negative (Negative); Urine Clarity Clear (Clear); Urine Urobilinogen Normal (Normal)
== END ==
PROVIDERS: Referring Provider Psychiatry & Neurology Psychiatry; Visit Provider Psychiatry & Neurology Psychiatry
DX: E55.9 Vitamin D deficiency, unspecified (principal)
CPT/HCPCS: 36415; 80053; 80307; 81002; 82306; 84443; 85025

== ENCOUNTER 2021-05-31 09:00 | Outpatient (RCR) | payer SELFPAY ==
[2015-03-30 20:50] VITALS: BMI 31.4
[2021-05-30 00:36] VITALS: BP 123/76; PULSE 53
--- NOTE | 2021-05-31 09:00 | BH.SGPN.GN ---
Behaviors/Verbalizations/Mental Status: []Eye contact is fair to good. Motor activity is appropriate. Appearance is casual. Speech is Appropriate. Mood is dysthymic and anxious. Affect is congruent. Thoughts are linear and logical. No evidence of psychosis. Reviewed daily check in sheet and client denies suicidal ideations, plan, or intent. Client Response/Progress/Benefit: []Pt was an attentive participant AEB actively listening, providing supportive feedback, as well as willingness to process with group. Client reports emotion for the day as ?somewhat hopeful? as she has been able to continue to make progress on some of her small goals. Shared seeing improvements in overall mood as a result. Pt did well to identify mental health wins which included cleaning the carpets and going to the gym over the weekend. Able to identify these as positives, however, struggled initially with disqualifying progress due to current stressor. Stressor noted as not following through with plans to attend [facility] on Monday. Shared that she had gotten dressed and drove to [facility] but couldn?t follow-through with going back in. Client continues to struggle with focusing only on areas she is struggling and not giving credit for progress. Benefited from group support, encouragement, and feedback. Will continue in IOP to maintain gains, further promote healthy coping behaviors, and prevent decompensation. Narrative Note: []
--- NOTE | 2021-05-31 10:05 | BH.SGPN.GN ---
Behaviors/Verbalizations/Mental Status: []Client alert and oriented, casually dressed and groomed. Eye contact good. Motor activity WNL. Speech within normal limits. Affect congruent, mood anxious and dysthymic. Thoughts linear, logical, no signs of hallucinations or delusions. Client Response/Progress/Benefit: []Client responded well to session, attentive and engaged throughout discussion and activity. Agreed with session quote and shared that fear has kept her from believing in herself and led to feeling like an imposter. The group discussed how mindset and one?s reaction to setbacks determines progress. Client shared past disappointments and fear of vulnerability has reinforced fear of failure in the past. Shared this has led to client trusting herself and others less, not reaching out, shutting down, and feeling more depressed as a result. Client appeared to benefit from gaining awareness of the impact fear of failure can have on one?s mental health and wellbeing. Progress noted as client continues to improve engagement in group setting, gain insight and coping skills which have improved overall ability to manage stressors and appears less preoccupied by own thoughts. Will continue IOP to reduce symptoms, combat distortions, and improve daily functioning. Narrative Note: []
--- NOTE | 2021-05-31 11:10 | BH.SGPN.GN ---
Behaviors/Verbalizations/Mental Status: []Client alert and oriented, neatly dressed and groomed. Eye contact good. Motor activity appropriate. Speech within normal limits. Affect congruent, mood euthymic and anxious. Thoughts linear, logical, no signs of hallucinations or delusions. Client Response/Progress/Benefit: []Client responded well to session, engaged during activity and discussion. Client completed the fear of failure worksheet and reported that fear of failure has kept client from meeting others, family activities, and going to school. Client able to identify thoughts and behaviors that reinforce personal fear of failure which included: lack of self-compassion, depressive cycles, and negative self-talk. Client attentive during discussion of the different strategies to help overcome fear of failure. Identified wanting to work on using positive affirmations to overcome fear of failure. Appeared to benefit from identifying strategies with peers. Will continue IOP tx to promote mood stability, increase self-care, and reinforce healthy coping skills. Narrative Note: []
--- NOTE | 2021-06-03 09:00 | BH.SGPN.GN ---
Behaviors/Verbalizations/Mental Status: []Eye contact is fair. Motor activity is restless. Appearance is neat-dressed for an interview. Speech is Appropriate. Mood is . Affect is anxious. Affect is flat. Thoughts are linear and logical. No evidence of psychosis. Reviewed daily check in sheet and pt denies any suicidal ideations or thoughts of . Client Response/Progress/Benefit: []Client responded well to session, appearing anxious, but still attentive. Client reports feeling anxious this morning as client has a job interview this afternoon and client is unsure she is even interested in the job. Group helped client reflect that this interview will give client an opportunity to practice calming skills and assertive communication. Client stated she is noticing progress in herself because a few weeks ago I wouldn't have even considered applying for jobs. Client has also been exercising more and is getting ready to go on vacation with her kids. Client's biggest stressor right now is finding work and taking care of her children. Progress noted in client's reduced paranoia and improved interactions. Will continue IOP tx to promote gains and further improve daily functioning. Narrative Note: []
--- NOTE | 2021-06-03 10:00 | BH.SGPN.GN ---
Behaviors/Verbalizations/Mental Status: [] Eye contact is good. Motor activity is appropriate. Appearance is casual. Speech is Appropriate. Mood is anxious. Affect is congruent. Thoughts are linear and logical. No evidence of psychosis. Client Response/Progress/Benefit: [] Pt participated at times in group discussion. Attentive during psychoeducation on the impact of anxiety, benefits of anxiety, and the different anxiety disorders. Pt asked questions and was engaged during discussion on types of anxiety disorders (OCD, PTSD, Panic D/O, Agoraphobia, MELANIE, Acute Stress Disorder, and Phobias). Group worked together to identify a list of common signs of anxiety which included; feeling tense, shakiness, sweating, tight chest, upset stomach, feeling flush, SOB, increased heart rate, headache, numbness, etc). Group was primarily psychoeducational in nature and pt was attentive. Benefited from increased awareness of different types of anxiety disorders as well as benefits and importance of identifying physiological signs of anxiety. Will continue in IOP to prevent decompensation, stabilize mood, and improve functioning. Narrative Note: []
--- NOTE | 2021-06-03 13:10 | BH.MDN_ITS ---
Multi-Disciplinary Note - Note 30-min Individual Time Started:: 10:45 Date: 06/03/21 Purpose of session/treatment goals addressed:: To work on goal #1 of client's tx plan by practicing calming coping skills. Eye Contact:: Fair Motor Activity:: Restless Appearance:: Neat Speech:: Rambling Mood:: Anxious Affect:: Constricted Thoughts:: Racing, No evidence of hallucinations/delusions noted Staff Interventions:: Therapist used gentle thought challenging and calming strategies to help client reduce anxiety about her job interview. Therapist taught (and practiced with) client the 5-senses, progressive muscle relaxation, and diaphragmatic breathing. Client Response:: Client responded well to session, visibly anxious and restless. Client has a job interview today and client shared she is unsure if she wants this job, but she is going to use the interview as practice with being assertive of her wants. Client reported she did not get good sleep last night and also drank less coffee this morning, so client reports belief this is also amplifying her anxiety. Client willing to learn and practice several calming skills to reduce anxiety. Client reports progressive muscle relaxation and deep breathing were most effective for her. Client stated she will have to practice to get diaphragmatic breathing correct. Client was still anxious by the end of session, but less restless. Will see client after she returns from vacation. Risks/Concerns:: Client denies any suicidal or homicidal ideations as of 06/03/21. Progress Toward Goals/Plan:: Client continues to demonstrate progress towards her tx goals AEB client's reduced ruminations about the past and focus on the future. Client has a job interview today and although she was anxious, she did not mention any paranoid thoughts. Client can continue to work on challenging distorted thinking patterns that reinforce anxiety and depression. Client will not be at [facility] next week because of vacation, but plans to return the week of 06/14/21. Time Stopped:: 11:20
--- NOTE | 2021-06-11 13:28 | BH.COMM ---
Communication Note - Communication with Client Communication Note: Pt was on vacation during the week of 06/07/21-06/11/21.
--- NOTE | 2021-06-18 10:10 | BH.SGPN.GN ---
Behaviors/Verbalizations/Mental Status: []Client alert and oriented, casually dressed and groomed. Eye contact good. Motor activity appropriate. Speech within normal limits. Affect constricted, mood euthymic. Thoughts linear, logical, no signs of hallucinations or delusions. Client Response/Progress/Benefit: []Client responded well to session, attentive and participating in discussion. Participated in discussion of things that can keep people feeling trapped or stuck in life including; avoidance, self-doubt, unhealthy coping skills, and fear of failure. Group discussed the connection between thoughts, emotions, and behaviors as well as how negative thinking can keep a person stuck. Client attentive during psychoeducation on maintenance cycles. Client able to identify negative thoughts that have kept client stuck which included ?I?m going to fail, this is terrible, and I should stop trying.? Appeared to benefit from gaining awareness of how negative thoughts reinforce mental health symptoms and keep people stuck. Will continue IOP tx to promote mood stability and further improve functioning that will benefit client at home and work. Narrative Note: []
--- NOTE | 2021-06-18 11:12 | BH.SGPN.GN ---
Behaviors/Verbalizations/Mental Status: []Client alert and oriented, casually dressed and groomed. Eye contact good. Motor activity appropriate. Speech within normal limits, quiet. Affect constricted, mood anxious. Thoughts linear, logical, no signs of hallucinations or delusions. Client Response/Progress/Benefit: []Client responded well to session, contributing to discussion and providing supportive feedback. Client appeared to connect with maintenance cycles and recognized how negative thinking can keep a person stuck. Shared relating as participants discussed ways negative thinking has held them back in the past. Client identified a negative thought that has kept her stuck. Client's thought was I shouldn?t show up. It?s not worth trying. Client able to connect how this thought maintains anxiety and depressive cycles, reinforces poor self-esteem, and increases negative thoughts. Client reported when she thinks this way, she ends up missing out on opportunities and is resentful as a result. Client worked to reframe the thought by finding more rational, realistic ways to look at the thoughts and then processed within the small group setting. Shared she could instead try saying You must at least try to be successful. It is just a momentary thought and it will pass. Client shared this thought would improve mental health because it would help client feel more determined and willing to keep trying when things get harder which would help reduce anxiety and anger at self as a result. Client appeared to benefit from practicing challenging negative thinking. Will continue IOP tx to maintain gains, continue to improve mood stability, and continue to improve thought challenging. Narrative Note: []
--- NOTE | 2021-06-18 13:08 | BH.MDN ---
Multi-Disciplinary Note - Note 30-min Individual Time Started:: 09:05 Date: 06/18/21 Purpose of session/treatment goals addressed:: To address goal #1 objective #2 of client's tx plan. Another goal was to discuss discharge plan. Eye Contact:: Good Motor Activity:: Restless Appearance:: Casual Speech:: Tangential Mood:: Anxious Affect:: Constricted Thoughts:: Other - thought blocking and loose associations at times. Staff Interventions:: thought challenging, discharge planning, strengths perspective Client Response:: Client responded well to session, open to meeting with therapist. Client stated she had a good time on vacation with her children and mother. Client shared she feels like she has been doing well, but her friend told client when do you go back to therapy. Client stated this took her by surprise and client has been somewhat second-guessing her progress. Client reflected on progress and shared her sleep has improved, she is more hopeful, and she has started a new job. Client reports feeling a little uneasy about her new job, but she is trying to keep a positive perspective. Client able to catch distorted thinking during session and gave herself credit for progress over the last six weeks. Client shared prior to coming to IOP client did not think going back to work was a possibility, now client is working. Client shared she will need to get another job as well because her current job is only part-time. Discussed aftercare and client has a therapist, but client still needs a psychiatrist. Risks/Concerns:: Client denies any suicidal ideations, plan, or intent as of 06/17/21. Denies any homicidal ideations. Client admits to missing a dose or two of her medication while on vacation, but reports she is taking as prescribed now. Progress Toward Goals/Plan:: Client continues to demonstrate progress towards tx goals AEB client's report of improved functioning at home, improved sleep, and recently starting a job. Client appeared more off topic today than she had been in previous sessions and she also used the phrase I don't know more than she has been. Client had been demonstrating this behavior prior to starting her Abilify and [facility] staff will continue to monitor. Client did not present with any paranoia and she is not ruminating about the past. Client will continue IOP tx to promote mood stability, reinforce healthy coping skills, and help client transition back to full-time employment. Time Stopped:: 09:35
--- NOTE | 2021-06-22 09:05 | BH.SGPN.GN ---
Behaviors/Verbalizations/Mental Status: [] Eye contact is good. Motor activity is appropriate. Appearance is casual. Speech is Appropriate. Mood is euthymic. Affect is full. Thoughts are linear and logical. No evidence of psychosis. Reviewed daily check in sheet and no reports of suicidal ideations or intent. Client Response/Progress/Benefit: [] Pt participated at times during the group discussion. Attentive. Daily symptom tracker notes12/04 for anxiety and agitation. Emotion for today is hopeful. Mental health wins included having a very pleasant weekend and accomplishing tasks. Reports sense of accomplishment over the weekend and in regards to starting her new job. Stressors is new job and routine changes however she reports that while stressful this is positive for many reasons. Progress noted per pt report. Benefited from group support and encouragement. Will continue in IOP to maintain gains and prevent decompensation. Plan to discharge tomorrow. Narrative Note: []
--- NOTE | 2021-06-22 10:10 | BH.SGPN.GN ---
Behaviors/Verbalizations/Mental Status: []Client alert and oriented, neatly dressed and groomed. Eye contact good. Motor activity appropriate. Speech within normal limits. Affect congruent, mood agitated. Thoughts linear, logical, no signs of hallucinations or delusions Client Response/Progress/Benefit: []Pt was an attentive participant and provided input during the activity. Attentive during psychoeducation and taking notes. Reflected connecting with topic of personal pitfalls and how they can impede mental health treatment progress. Pt and peers also discussed reasons why overcoming pitfalls is so challenging. During experiential activity pt along with peers identified several pitfalls from the activity that are also associated with mental health which included: lack of awareness, poor communication, wanting to give up, and emotional reactivity. Pt expressed impatience and anxiety during the activity. Pt did well to provide ideas to help the group keep trying. Benefited from group by increasing awareness of pitfalls which can impact mental health. Pt will continue in IOP tx to reinforce healthy coping skills and establish aftercare. Narrative Note: []
--- NOTE | 2021-06-22 11:10 | BH.SGPN.GN ---
Behaviors/Verbalizations/Mental Status: []Client alert and oriented, casually dressed and groomed. Eye contact fair to good. Motor activity appropriate. Speech within normal limits. Affect constricted, mood anxious and dysthymic. Thoughts linear, logical, no signs of hallucinations or delusions. Client Response/Progress/Benefit: []Client receptive of session, engaged throughout AEB client actively participating in challenge activity, as well as listening and contributing to discussion. Taking notes throughout processing portions of session. Client completed worksheet identifying personal pitfalls impacting mental health progress. Client identified the following pitfalls: distorted thinking patterns such as personalization, shutting down, wanting to give up, and not reaching out for help. Group discussed different coping skills to help manage or prevent from falling into pitfalls. Client expressed plans to will work on improving distress tolerance through reminding herself fto take regular breaks so that she is less likely to become overwhelmed. Appeared to benefit from identifying personal pitfalls and strategies to overcome these pitfalls. Will continue IOP tx to prevent decompensation, improve consistent application of healthy coping skills, and maintain mood stability. Narrative Note: []
--- NOTE | 2021-06-23 08:35 | BH.IGGP_ITS ---
Aftercare Plan - Demographics Treatment End Date:: 06/23/21 Psychiatrist:: Jenn Vu Psychiatrist Office #:: [phone] [facility] Therapist:: Lo Altman Therapist Phone #:: [phone] - Plan Details Progress/Aftercare Plan Details:: Minda has made significant strides since starting IOP as shown by her improved mood, returning back to work, and increased ability to cope with daily stressors. When Minda started IOP she was experiencing significant anxiety, distrust of others, and isolation. Minda was ruminating on the past and was feeling hopeless that life would get easier. Now, Minda feels more trusting of others, can catch negative thinking, is sleeping better and taking care of herself, and is not isolating. Minda self-reports progress in being hopeful about the future, ?I just feel better,? and being able to deal with stress more easily. Minda was active in both group and individual therapy sessions. Minda contributed to group discussions, offered emotional support to peers, and applied skills outside of [facility]. In individual sessions, Minda was receptive to feedback, consistent with homework, and kept an open mind. Minda plans to follow up with her outpatient therapist, Alcon Arias, at [facility]. Client also plans to get psychiatry through [facility]. Strategies for Success:: 1. Challenge those negative thoughts and remember to pay attention to the facts. 2. Remember to STOP (stop, take a breath, observe, and proceed) 3. Check in with yourself and take care of those emotions, don?t wait for them to take over you. 4. Opposite action! Keep it up and remember how you feel after you do something good for you. 5. Positive self-talk and affirmations. 6. Find a way to laugh each day or connect with someone each day. 7. Maintenance! Keep up with what has worked. 8. Give yourself credit! You have come so far and you have a lot of strengths. 9. Be vulnerable to make new connections- I know this is scary. 10. Keep up with therapy, medication, and exercise. - Appointments Appointments/Referrals to Other Services:: 1. Alcon at [facility] for individual counseling. 2. Also need to schedule psychiatry at [facility] - Medications Home Medications: Home Medications fluoxetine [Prozac] 20 mg PO DAILY 05/05/21 aripiprazole [Abilify] 10 mg PO QHS 30 Days #30 tab 05/26/21 diphenhydramine HCl [Benadryl] 25 - 50 mg PO QHS PRN PRN 05/26/21 aripiprazole [Abilify] 10 mg PO QHS 30 Days #30 tab 06/23/21
--- NOTE | 2021-06-23 09:05 | BH.SGPN.GN ---
Behaviors/Verbalizations/Mental Status: [] Pt eye contact fair, casually dressed, motor activity appropriate, speech normal rate and tone, mood euthymic, congruent affect, thoughts linear and intact, no evidence of delusions or hallucinations. Reviewed client?s symptom tracker, no signs of suicidal ideation, plan, or intent as of today. Client Response/Progress/Benefit: []Pt responded well to session AEB by listening to others and sharing thoughts and feelings. Pt stated she has been continuing to read and exercise more consistently. Pt stated she is feeling more hopeful because she has a job and her house feels more in order. Pt reported she is feeling more stable with her life being in more order. Pt seemed to benefit from support from peers and review of progress. Pt has made significant treatment progress and will discharge from [facility] today. Narrative Note: []
--- NOTE | 2021-06-23 11:20 | BH.SGPN.GN ---
Behaviors/Verbalizations/Mental Status: []Client alert and oriented, neatly dressed and groomed. Eye contact good. Motor activity appropriate. Speech within normal limits. Affect constricted, mood hopeful. Thoughts linear, logical, no signs of hallucinations or delusions. Client Response/Progress/Benefit: []Pt was engaged throughout AEB participating in discussion and taking notes. Contributed as group brainstormed healthy coping skills for better managing anger which included: deep breathing, counting, exercise, changing one?s environment, and listening to music. Pt also gained awareness of costs of unmanaged anger. Pt appeared to benefit from identifying different techniques to manage anger as well as gaining awareness of the costs of anger. Pt selected doing things to change her body temperature to better manage anger. Will discharge from IOP tx today as client has made significant progress and no longer meets criteria for IOP level of care. Narrative Note: []
--- NOTE | 2021-06-23 11:58 | PCM.BH.PN ---
Progress Note Progress Note: History of Present Illness/Interim History: [] The patient is a 30-year-old female who is seen in follow-up at the [facility] behavioral health IOP program. I last saw the patient about 3-1/2 weeks ago and at that time her Abilify was increased to 10 mg p.o. daily in the hopes of decreasing her paranoid delusions. The patient states I feel good. She states that her sleep is much better and her mood is much more even?keeled now. Her energy level is normal and she is also able to rest when needed. Her paranoia has almost completely resolved and she states that she does not feel that her phone is bugged anymore. The patient denies any other delusions or hallucinations. She is enjoying her children and is able to function well at home and at work. She denies any passive thoughts of . She denies suicidal ideation, homicidal ideation or plan for suicide. The patient worked at a new job for 1 week and it was okay and then since that office is on vacation she will then go back to her new job on June 30, 2021. She is looking forward to returning to work and feels that she will do fine. Current Psychiatric Medications: [] Abilify 10 mg p.o. nightly (x4 weeks). Mental Status Examination: [] Patient is a 30-year-old female who is seen wearing a mask due to the pandemic and is casually dressed and groomed with good hygiene. She has no psychomotor agitation or retardation. She is cooperative during the interview. Eye contact is good and speech is normal rate and rhythm and fluent with no pressure. Mood is mildly depressed. Affect is full and normal. Thought process is goal-directed and organized. Thought content: There is no evidence of delusions of paranoia or any other type of delusion. There is no evidence of hallucinations, thoughts of , suicidal ideation, homicidal ideation or thoughts of self-harm. Judgment is intact. Insight is fair. Impulsivity is mild. Diagnoses: [] 1. Bipolar disorder, most recent episode depressed, severe with psychosis (resolving) 2. Rule out psychosis, NOS 3. Headaches with onset in the past year 4. Primary support, financial and work issues Plan: [] The patient will be discharged today from the IOP program as she has benefited greatly from the structure, support, education and group therapy. She felt safe during the interview and if it anytime she does not feel safe she will let us know or go to the emergency room. The risks, options, possible complications and side effects of Abilify were again discussed with the patient and she understands and accepts these. She agrees to call the number she was given to set up an appointment with her psychiatrist today. Discussed also with the patient that it is important that she stays on the medications for several months or more. The patient does not have insurance and agrees to apply for insurance as she could benefit from a CT of the head for her headaches and psychosis but refuses that at this time. She is given a refill on her Abilify 10 mg p.o. daily number, #30, 1 refill. She agrees to follow-up with her outpatient medical and psychiatric providers. She agrees to see a neurologist as soon as she gets insurance or CHUCKIE from my standpoint.
--- NOTE | 2021-06-23 14:19 | BH.DS ---
Discharge Summary - Demographics Date of Admission:: 04/29/21 Discharge Date: 06/23/21 Presenting Problems at Admission:: Client is a 30 year-old female with a history of anxiety, depression, and paranoia. Client was referred to [facility] by a close friend due to client's worsening anxiety and connecting things that aren't connected. At admission, client reported belief that her house, car, and phone are all bugged. Client also reported hearing sounds others do not hear, but denied hearing any voices. 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 Client reported lack of trust for people, even those closest to her. Client had been withdrawing from family and friends, but still enjoyed spending time with her children. Client reported some symptoms of ham as well such as lack of sleep, but still having energy. Client also endorsed a depressed mood with erratic sleep and decreased appetite. Client was not functioning at her baseline and reported it has been hard for her to leave her house due to anxiety. Client reported her symptoms have been worse over the past six months and client has experienced numerous stressors including the [place] pandemic and divorce. Discharge Diagnoses:: Bipolar disorder, most recent episode depressed, severe with psychosis (resolving); Rule out psychosis, NOS Reason for Discharge:: Client has accomplished her treatment goals AEB her reduced DSM-5 symptoms, improved functioning, and overall improved mood. Client no longer meets criteria for IOP level of care. - Treatment Progress During Treatment & Response: Client has made significant strides since starting IOP as shown by her improved mood, returning to work, and increased ability to cope with daily stressors. When Client started IOP she was experiencing significant anxiety, distrust of others, and isolation. Client was ruminating on the past and was feeling hopeless that life would get easier. Client was demonstrating symptoms of paranoia as client believed her home, car, and phone were all bugged. Client also admitted to hearing things others could not hear and ?making connections others don?t make.? Now, Client feels more trusting of others, can catch negative thinking, is sleeping better and taking care of herself, and is not isolating. Client also no longer feels that her home, phone, or car is bugged. Client self-reports progress in being hopeful about the future, ?I just feel better,? and being able to deal with stress more easily. Client was active in both group and individual therapy sessions. Client contributed to group discussions, offered emotional support to peers, and applied skills outside of [facility]. Client?s overall DSM-5 symptoms decreased by 76%, depression decreased by 67%, anxiety decreased by 78%, and psychosis by 100%. Issues Still to be Addressed:: Client has been encouraged to continue with outpatient counseling on a weekly basis, but client is unsure she wants to do this due to feeling better. Client understands that mood stability requires maintenance of medication management and use of healthy coping skills. Client can also continue to work on challenge negative thinking, using opposite action, and practicing daily self-care. Discharge Recommendations/Instructions:: Client plans to return to her previous counselor at [facility], Alcon Arias. Client has been encouraged to set up an appointment with his for several weeks, but client reports she has not called yet. Client has also been encouraged to schedule with a psychiatrist at [facility], but admits that she has forgotten to do this. Client has additional resources for psychiatry including [facility] and [facility]. Client was offered to join [facility] aftercare, but client cannot join at this time. Client will follow up with her PCP and was encouraged to find a neurologist. Discharge Handout: Complete Discharge Handout with client on aftercare options and continuity of care.
== END 2021-06-23 14:03 | disposition home or self-care (01) ==
LOC: BHIOP 09:00
PROVIDERS: Referring Provider Psychiatry & Neurology Psychiatry; Visit Provider Psychiatry & Neurology Psychiatry
DX: F31.5 Bipolar disorder, current episode depressed, severe, with psychotic features (principal)
CPT/HCPCS: S9480; 90832; 90853

== ENCOUNTER → 2022-09-07 | Outpatient (CLI) | payer OTHER, SELFPAY ==
--- NOTE | 2022-09-07 10:25 | RAD_ITS ---
STUDY: X-RAY - RIGHT HAND REASON FOR EXAM: Female, 31 years old. Right thumb injury. Pain. TECHNIQUE: 3 view(s) of the hand. COMPARISON: None. FINDINGS: Normal radiocarpal articulation. Normal distal radioulnar joint. Normal visualized carpal bones. Normal carpal articulations Normal carpometacarpal articulation of the thumb. Normal second through fifth carpometacarpal joints. Normal metacarpi. Normal metacarpophalangeal joint of the thumb. Normal interphalangeal joint of the thumb. Normal proximal and distal phalanges of the thumb. Normal metacarpophalangeal joints of the second through fifth fingers. Normal proximal and distal interphalangeal joints of the second through fifth fingers. Normal phalanges of the second through fifth fingers. The soft tissue structures are unremarkable. RAD/Hand Min 3 Views IMPRESSION: Normal x-ray examination of the hand. Electronically Signed: Chi Felton, at 12:03 EST ,
== END | disposition home or self-care (01) ==
PROVIDERS: PCP Family Medicine; Referring Provider Physician Assistant; Visit Provider Physician Assistant
DX: S60.011A Contusion of right thumb without damage to nail, initial encounter (principal)
CPT/HCPCS: 73130